=== PATIENT | female | born 1930 | race Caucasian/White ===

== ENCOUNTER 2017-06-27 17:54 | Inpatient (IN) | payer BC, MEDICARE ==
[~2017-06-27] VITALS: Ht 144.8 cm; Wt 58.3 kg
[2017-06-27 18:25] LABS: BASOPHILS # (AUTO) 0.2 K/uL (0.0-8.0); BASOPHILS % (AUTO) 1.7 % (0.0-2.0); EOSINOPHILS % (AUTO) 0.5 % (0.0-7.0); HEMATOCRIT 48.4 % (37-47); HEMOGLOBIN 16.3 G/DL (12.0-16.0); LYMPHOCYTES # (AUTO) 1.4 K/UL (0.8-4.8); LYMPHOCYTES % (AUTO) 14.2 % (20.5-51.5); MEAN CORPUSCULAR HEMOGLOBIN 29.2 UUG (27.0-31.0); MEAN CORPUSCULAR HGB CONC 34 g/dL (32.0-37.0); MONOCYTES # (AUTO) 0.6 K/UL (0.1-1.30); MONOCYTES % (AUTO) 6.2 % (0.0-11.0); NEUTROPHILS # (AUTO) 7.4 K/UL (1.8-8.9); NEUTROPHILS % (AUTO) 77.4 % (38.5-71.5); PLATELET COUNT (AUTO) 299 K/UL (150-450); RED BLOOD CELL COUNT(AUTO) 5.57 MIL/UL (4.2-5.4); WHITE BLOOD COUNT (AUTO) 9.6 K/UL (4.0-11.2)
[2017-06-27 18:29] LABS: CARBON DIOXIDE 31 mmol/L (21-32); CHLORIDE 99 mmol/L (98-107); CREATININE 0.7 mg/dL (0.6-1.3); GLUCOSE 115 mg/dL (74-106); POTASSIUM 3.9 mmol/L (3.5-5.1); UREA NITROGEN, BLOOD 14 mg/dL (7-18)
[2017-06-27 18:36] LABS: ALANINE AMINOTRANSFERASE 20 U/L (14-59); ALKALINE PHOSPHATASE 113 U/L (50-136); ASPARTATE AMINOTRANSFERASE 20 U/L (15-37); BILIRUBIN,DIRECT 0.1 mg/dL (0.0-0.2); BILIRUBIN,TOTAL 0.3 mg/dL (0.2-1.0); TOTAL PROTEIN, SERUM 7.8 g/dL (6.4-8.2)
[2017-06-27] MEDS ORDERED: LABETALOL HCL 100 MG/20 ML VIAL IV ONE (19:45)
[2017-06-27] MEDS ORDERED: AZITHROMYCIN IV 500 MG in IV DEXTROSE 5% 250 ML IV ONE (19:45)
[2017-06-27] MEDS ORDERED: PIPERACILLIN SODIUM/TAZOBACTAM 3.375 G in IV DEXTROSE 5% 50 ML IV ONE (19:45)
[2017-06-27] MEDS ORDERED: AZITHROMYCIN 500 MG VIAL IV ONE (20:01)
[2017-06-27] MEDS ORDERED: PIPERACILLIN/TAZOBACTAM/D5W 50 ML IV ONE (20:01)
--- NOTE | 2017-06-27 20:20 | NUR ---
PATIENT BP AT 206/78. PAIENT DENIES PAIN,SOB. DR HARDING MADE AWARE
[2017-06-27] MEDS ORDERED: ONDANSETRON IV *ER 4 MG/2 ML VIAL IV ONE (20:30)
[2017-06-27] MEDS ORDERED: LABETALOL HCL 100 MG/20 ML VIAL ONE (20:37)
[2017-06-27] MEDS ORDERED: ONDANSETRON 4 MG/2 ML VIAL ONE (20:37)
[2017-06-27 21:04] LABS: *BILIRUBIN,URIN NEGATIVE (NEGATIVE); *BLOOD, URINE Trace-lysed (NEGATIVE); *CLARITY,URINE CLEAR (CLEAR); *COLOR,URINE YELLOW (YELLOW); *KETONES,URINE NEGATIVE (NEGATIVE); *PROTEIN,URINE 1+ (NEGATIVE); *UROBILINOGEN,URINE 0.2 E.U./dl (NORMAL); LEUKOCYTE ESTERASE ,URINE NEGATIVE (NEGATIVE); NITRITE, URINE NEGATIVE (NEGATIVE); PH,URINE 7.5 (5.0-8.0); UGLUCOSE NEGATIVE (NEGATIVE)
[2017-06-27 21:10] LABS: BACTERIA,URINE NONE SEEN /HPF (NONE SEEN); SQUAMOUS EPITHELIAL CELL,UR FEW /HPF (NONE SEEN); WBC,URINE 0-3 /HPF (0-3)
--- NOTE | 2017-06-27 21:20 | NUR ---
transfered to 2nd floor via [facility]
--- NOTE | 2017-06-27 21:40 | NUR ---
RECEIVED PATIENT VIA GURNEY FROM ER WITH DAUGHTER PRESENT AT BEDSIDE. PATIENT IS ALERT TO SELF, CONFUSED AND VERY FORGETFUL, BUT PLEASANT AND COOPERATIVE WHEN APPROACHED. PER PATIENTS DAUGHTER, PATIENT HAS LOST COMPLETE MEMORY FOR THE LAST 3 WEEKS. PATIENT FOLLOWS SIMPLE DIRECTIONS BUT EASILY FORGETFUL AND NEEDS FREQUENT REDIRECTION. DENIES PAIN WHEN ASKED, NO S/S OF PAIN OR DISCOMFORT. NO RESP. DISTRESS NOTED. PATIENT IS ON O2 2L NC SATING 98%. VS WNL. PLACED ON TELE ORDERED, SR. REPSOTIOEMD TO SIDE FOR COMFORT AND PRESSURE RELIEF. SKIN IS INTACT. BED ALARM ON. CALL LIGHT IN REACH. ALL NEEDS ATTENDED. WILL CONTINUE TO MONITOR AND ASSESS.
[2017-06-27 21:45] VITALS: BP 148/89
[2017-06-27] MEDS ORDERED: ENALAPRILAT DIHYDRATE INJ 2.5 MG in IV NORMAL SALINE 50 ML IV PRN (22:00)
[2017-06-27] MEDS ORDERED: ONDANSETRON 4 MG/2 ML VIAL IV PRN (22:00)
[2017-06-27] MEDS ORDERED: ALBUTEROL SULFATE 2.5 MG/3 ML NEBU NEB PRN (22:00)
[2017-06-27] MEDS ORDERED: AZITHROMYCIN IV 500 MG in IV DEXTROSE 5% 250 ML IV SCH (22:00)
[2017-06-27] MEDS ORDERED: ACETAMINOPHEN 325 MG TABLET PO PRN (22:00)
[2017-06-27] MEDS ORDERED: MAGNESIUM HYDROXIDE 30 ML LIQUID UDC PO PRN (22:00)
[2017-06-27] MEDS ORDERED: HYDROCODONE/APAP 5-325MG TABLET PO PRN (22:00)
[2017-06-27] MEDS ORDERED: DONE10TA44 PO (22:01)
[2017-06-27] MEDS ORDERED: DENO60DI SQ (22:01)
[2017-06-27] MEDS ORDERED: ACET325T53 PO (22:01)
[2017-06-27] MEDS ORDERED: ONDA4TAB10 PO (22:01)
[2017-06-27] MEDS ORDERED: QUET25TA PO (22:01)
[2017-06-27] MEDS ORDERED: MIRA25TA PO (22:01)
[2017-06-27] MEDS: CEFTRIAXONE 1 G in IV DEXTROSE 5% 50 ML IV SCH (23:31)
[2017-06-27] MEDS ORDERED: CEFTRIAXONE 1 G VIAL ONE (23:35)
[2017-06-28] VITALS: BP 142/75
[2017-06-28 05:06] VITALS: BP 182/91
--- NOTE | 2017-06-28 05:15 | NUR ---
PATIENTS BLOOD PRESSURE 182/91. ALL OTHER VSS. PATIENT GIVEN VASOTEC 2.5MG IV PER OPERATIONS SUPERVISOR CHEMICAL CLEANING. ON TELE SR. WILL CONTINUE TO MONITOR AND ASSESS.
[2017-06-28] MEDS ORDERED: ENALAPRILAT DIHYDRATE 1.25 MG/1 ML VIAL IV ONE (05:18)
--- NOTE | 2017-06-28 06:17 | NUR ---
PATIENT AWAKE IN BED. ON TELE SR. NO S/S OF PAIN OR DISCOMFORT. NO RESP. DISTRESS NOTED. BED ALARM ON. CALL LIGHT IN REACH. ALL NEEDS ATTENDED. WILL CONTINUE TO MONITOR.
[2017-06-28 06:42] VITALS: BP 133/52
--- NOTE | 2017-06-28 06:43 | NUR ---
PATIENT AWAKE IN BED. RECHECKED PATIENTS BLOOD PRESSURE 133/52. ALL OTHER VSS. BED ALARM ON. ALL NEEDS ATTENDED. WILL CONTINUE TO MONITOR.
[2017-06-28 06:48] LABS: BASOPHILS % (AUTO) 0.1 % (0.0-2.0); EOSINOPHILS # (AUTO) 0.1 K/uL (0.0-0.7); EOSINOPHILS % (AUTO) 0.8 % (0.0-7.0); HEMATOCRIT 44.2 % (37-47); LYMPHOCYTES # (AUTO) 1.3 K/UL (0.8-4.8); LYMPHOCYTES % (AUTO) 15.2 % (20.5-51.5); MEAN CORPUSCULAR HEMOGLOBIN 29.8 UUG (27.0-31.0); MEAN CORPUSCULAR HGB CONC 34 g/dL (32.0-37.0); MEAN CORPUSCULAR VOLUME 87.8 FL (81.0-99.0); MONOCYTES # (AUTO) 0.8 K/UL (0.1-1.30); NEUTROPHILS # (AUTO) 6.7 K/UL (1.8-8.9); NEUTROPHILS % (AUTO) 74.9 % (38.5-71.5); PLATELET COUNT (AUTO) 286 K/UL (150-450); RED BLOOD CELL COUNT(AUTO) 5.03 MIL/UL (4.2-5.4); WHITE BLOOD COUNT (AUTO) 8.9 K/UL (4.0-11.2)
[2017-06-28 07:14] LABS: ALANINE AMINOTRANSFERASE 24 U/L (14-59); ALKALINE PHOSPHATASE 95 U/L (50-136); ASPARTATE AMINOTRANSFERASE 17 U/L (15-37); BILIRUBIN,TOTAL 0.5 mg/dL (0.2-1.0); CARBON DIOXIDE 31 mmol/L (21-32); CHLORIDE 99 mmol/L (98-107); CHOLESTEROL 243 mg/dL (<200); CREATININE 0.7 mg/dL (0.6-1.3); GLUCOSE 105 mg/dL (74-106); HDL CHOLESTEROL 62 mg/dL (40-60); MAGNESIUM 1.8 mg/dL (1.8-2.4); PHOSPHOROUS 3.9 mg/dL (2.5-4.9); POTASSIUM 3.2 mmol/L (3.5-5.1); TOTAL PROTEIN, SERUM 6.8 g/dL (6.4-8.2); TRIGLYCERIDES 68 MG/DL (30-150); UREA NITROGEN, BLOOD 14 mg/dL (7-18)
[2017-06-28 08:11] LABS: THYROID STIMULATING HORMONE 2.289 mIU/mL (0.358-3.740)
[2017-06-28] MEDS: PANTOPRAZOLE SODIUM 40 MG TABLET.DR PO SCH (08:35)
[2017-06-28] MEDS ORDERED: FUROSEMIDE 20 MG/2 ML VIAL IV SCH (09:00)
[2017-06-28] MEDS ORDERED: DONEPEZIL 10 MG TABLET PO SCH (09:00)
[2017-06-28] MEDS ORDERED: METOPROLOL TARTRATE 25 MG TABLET PO SCH (09:00)
[2017-06-28 12:00] VITALS: BP 104/34
--- NOTE | 2017-06-28 12:05 | NUR ---
Received patient asleep in bed, non-labored breathing. Not in distress. Will continue to monitor.
--- NOTE | 2017-06-28 13:54 | NUR ---
Encouraged patient to eat or drink but refuses. Alert x1. No complaints of discomfort. Side rails up x3, bed in low position. Bed alarm on. Call light within reach
[2017-06-28] MEDS ORDERED: POTASSIUM CHLORIDE 20 MEQ TAB.PRT.SR PO ONE (15:00)
[2017-06-28] MEDS: AMLODIPINE 5 MG TABLET PO SCH (15:07)
[2017-06-28 15:47] VITALS: BP 136/43
[2017-06-28] MEDS: DONEPEZIL 5 MG TABLET PO SCH (16:56)
--- NOTE | 2017-06-28 17:51 | NUR ---
With daughter at bedside. Awake, oriented x1, still with periods of confusion. NO SOB or chest pains noted. Not in any form of distress.
[2017-06-28 20:00] VITALS: BP 159/75
[2017-06-28] MEDS ORDERED: DOCUSATE SODIUM 100 MG CAPSULE PO SCH (21:00)
[2017-06-28] MEDS ORDERED: AZITHROMYCIN IV 500 MG in IV DEXTROSE 5% 250 ML IV SCH (21:00)
[2017-06-28] MEDS ORDERED: QUETIAPINE FUMARATE 25 MG TABLET PO SCH (21:00)
[2017-06-28] MEDS: CEFTRIAXONE 1 G in IV DEXTROSE 5% 50 ML IV SCH (21:43)
[2017-06-29 04:30] VITALS: BP 137/75
[2017-06-29] MEDS: PANTOPRAZOLE SODIUM 40 MG TABLET.DR PO SCH (06:05)
[2017-06-29 06:41] LABS: CARBON DIOXIDE 31 mmol/L (21-32); CHLORIDE 97 mmol/L (98-107); GLUCOSE 99 mg/dL (74-106); POTASSIUM 4.1 mmol/L (3.5-5.1); UREA NITROGEN, BLOOD 14 mg/dL (7-18)
--- NOTE | 2017-06-29 06:56 | NUR ---
PATIENT SLEPT INTERMITTENTLY, IN NO ACUTE DISTRESS. PATIENT KEPT CLEAN/DRY, REPOSITIONED FOR COMFORT. SAFETY MEASURES IN PLACE. NO SIGNIFICANT CHANGE OF CONDITION THROUGHOUT THE SHIFT. WILL ENDORSE TO ONCOMING SHIFT RN.
--- NOTE | 2017-06-29 07:10 | NUR ---
Received report from night coordinator nurse, patient in bed asleep, no evidence of distress noted. Bed in low position, side rails up x2, bed alarm on.
[2017-06-29] MEDS: DONEPEZIL 5 MG TABLET PO SCH (08:43)
[2017-06-29] MEDS: AMLODIPINE 5 MG TABLET PO SCH (08:44)
[2017-06-29 11:11] VITALS: BP 115/46
[2017-06-29 11:50] VITALS: BP 188/76
--- NOTE | 2017-06-29 11:50 | NUR ---
Patient ambulated with physical therapy, and complained about left leg pain which got better as she ambulated. Upon sitting BP was taken and noted to be elevated. Pain medication will be given to patient.
[2017-06-29 12:48] VITALS: BP 143/62
--- NOTE | 2017-06-29 13:10 | NUR ---
Patient was taken to Son's vehicle as he will be taking her home. Son stated that the patient had a dwayne watch and clothing on when she arrived. Review of patient belonging list performed and no indication of anything but dentures were documented.
== END 2017-06-29 13:30 | DRG 193 ==
LOC: ER 17:55 → TELE 21:04 → MED 06-28 16:00
PROVIDERS: ADMIT Internal Medicine; ATTEND Family Medicine
DX: J15.9 Unspecified bacterial pneumonia (principal); I50.31 Acute diastolic (congestive) heart failure; G30.9 Alzheimer's disease, unspecified; E86.0 Dehydration; F02.80 Dementia in other diseases classified elsewhere, unspecified severity, without behavioral disturbance, psychotic disturbance, mood disturbance, and anxiety; N32.81 Overactive bladder; I16.0 Hypertensive urgency; I11.0 Hypertensive heart disease with heart failure; M81.0 Age-related osteoporosis without current pathological fracture; I70.0 Atherosclerosis of aorta
CPT/HCPCS: 36415; 70030-TC; 70450; 71010; 83605; 83735; 84100; 84443; 85025; 85730; 87040; 87086; 93005; 93307; 97116; 97530; A4663; C1758; J0456; J0696; J1940; J2405; J2543; J3490; J7050; J7060

== ENCOUNTER 2017-11-03 08:29 | Inpatient (IN) | payer BC ==
[~2017-11-03] VITALS: Ht 152.4 cm; Wt 54.4 kg
[~2017-11-03 08:29] MED LIST: ACET325T53 PO; DENO60DI SQ; DONE10TA44 PO; MIRA25TA PO; ONDA4TAB10 PO; QUET25TA PO
[2017-11-03] MEDS ORDERED: DICL75TA5 PO (08:52)
[2017-11-03] MEDS ORDERED: MENT71OI TP (08:52)
--- NOTE | 2017-11-03 09:14 | NUR ---
iv placed, labs drawn-sent, ekg done, pt at ct scan/xray. monitor showed nsr, po2=93% on roomair. no distress noted.
[2017-11-03 09:15] LABS: BASOPHILS % (AUTO) 0.7 % (0.0-2.0); EOSINOPHILS # (AUTO) 0.1 K/uL (0.0-0.7); HEMATOCRIT 45.2 % (31.2-41.9); HEMOGLOBIN 15.3 g/dL (10.9-14.3); LYMPHOCYTES # (AUTO) 1.2 K/uL (20.0-40.0); LYMPHOCYTES % (AUTO) 17.6 % (20.5-51.5); MEAN CORPUSCULAR HGB CONC 34 g/dL (32.3-35.6); MEAN CORPUSCULAR VOLUME 88.9 fL (75.5-95.3); MONOCYTES # (AUTO) 0.6 K/uL (2.0-10.0); MONOCYTES % (AUTO) 8.6 % (0.0-11.0); NEUTROPHILS # (AUTO) 4.9 K/uL (1.8-8.9); NEUTROPHILS % (AUTO) 71.1 % (38.5-71.5); PLATELET COUNT (AUTO) 281 K/uL (179-408); RED BLOOD CELL COUNT(AUTO) 5.08 MIL/uL (3.63-4.92); WHITE BLOOD COUNT (AUTO) 6.8 K/uL (3.8-11.8)
[2017-11-03 09:17] LABS: CARBON DIOXIDE 33 mmol/L (21-32); CHLORIDE 102 mmol/L (98-107); CREATININE 0.8 mg/dL (0.6-1.3); GLUCOSE 97 mg/dL (74-106); UREA NITROGEN, BLOOD 20 mg/dL (7-18)
[2017-11-03 09:23] LABS: ALANINE AMINOTRANSFERASE 20 U/L (14-59); ALKALINE PHOSPHATASE 83 U/L (50-136); ASPARTATE AMINOTRANSFERASE 16 U/L (15-37); BILIRUBIN,TOTAL 0.5 mg/dL (0.2-1.0); CREATINE KINASE, TOTAL 35 U/L (26-192); TOTAL PROTEIN, SERUM 7.1 g/dL (6.4-8.2)
--- NOTE | 2017-11-03 09:33 | NUR ---
prt returned from radiology, no distress noted.
[2017-11-03] MEDS ORDERED: CLONIDINE HCL 0.2 MG TABLET PO ONE (10:31)
[2017-11-03] MEDS ORDERED: CLONIDINE HCL 0.1 MG TABLET PO ONE (10:34)
[2017-11-03] MEDS ORDERED: CLONIDINE HCL 0.1 MG TABLET ONE (10:35)
--- NOTE | 2017-11-03 10:48 | NUR ---
sbar report to [facility], belongings list, admit order completed.
--- NOTE | 2017-11-03 11:05 | NUR ---
pt transported via [facility] with monitor to rm 205.
--- NOTE | 2017-11-03 11:08 | NUR ---
PT ARRIVED TO UNIT ON GURNEY, PT IS AOX2 AND FORGETFUL. PT STABLE, SKIN INTACT. MINOR BRUISE FROM FALL AT [facility] ON RIGHT SIDE OF FOREHEAD. NO FRACTURES NOTED. PT SHOWS NO SIGNS OF RESPIRATORY DISTRESS. IV INTACT, UA PENDING WILL ENDORSE TO BOOK RETAILER. PT ON TELE.
[2017-11-03 11:18] VITALS: BP 129/63
[2017-11-03] MEDS ORDERED: MAGNESIUM HYDROXIDE 30 ML LIQUID UDC PO PRN (15:15)
[2017-11-03] MEDS ORDERED: TRAMADOL HCL 50 MG TABLET PO PRN (15:15)
[2017-11-03] MEDS ORDERED: ONDANSETRON 4 MG/2 ML VIAL IV PRN (15:15)
[2017-11-03] MEDS ORDERED: Z GUARD REMEDY PASTE 57 GM TUBE TP PRN (15:15)
[2017-11-03] MEDS ORDERED: ACETAMINOPHEN 325 MG TABLET PO PRN ×2 (15:15)
[2017-11-03 15:32] VITALS: BP 115/66
--- NOTE | 2017-11-03 19:25 | NUR ---
PT RECEIVED IN BED, AWAKE. A/OX1, BUT ABLE TO MAKE NEEDS KNOWN. V/S STABLE. IN NO ACUTE DISTRESS. NO C/O PAIN AT THIS TIME. 94 SINUS RHYTHM ON THE TELE MONITOR. IV ON LAC INTACT AND PATENT, HEP-LOCKED. ON RA, TOLERATING WELL. AFEBRILE. HOB ELEVATED. SAFETY MEASURES IMPLEMENTED. BED ALARM SET. CALL LIGHT WITHIN REACH.
[2017-11-03 20:00] VITALS: BP 129/72
[2017-11-03] MEDS ORDERED: QUETIAPINE FUMARATE 25 MG TABLET PO SCH (21:00)
[2017-11-03] MEDS ORDERED: DOCUSATE SODIUM 250 MG CAPSULE PO SCH (21:00)
[2017-11-03] MEDS ORDERED: DOCUSATE SODIUM 100 MG CAPSULE PO SCH (21:00)
[2017-11-03] MEDS: TOLTERODINE 2 MG TABLET PO SCH (21:58)
[2017-11-03] MEDS ORDERED: LORAZEPAM 2 MG/1 ML VIAL IV PRN (23:45)
--- NOTE | 2017-11-04 00:05 | NUR ---
PT NON-COMPLIANT WITH CARE. CONFUSED, SCREAMING, REMOVING DIAPER, SCRATCHING MANAGEMENT SPECIALIST. ADMINISTERED ATIVAN ORDERED. IN STABLE CONDITION. WILL CONT TO MONITOR.
[2017-11-04 04:26] VITALS: BP 108/65
--- NOTE | 2017-11-04 06:05 | NUR ---
END OF SHIFT NOTES. PT SLEPT WELL THROUGHOUT SHIFT. IN STABLE CONDITION. TOLERATED RA, WELL. IV CONT TO BE INTACT AND PATENT, HEP-LOCKED. AFEBRILE THROUGHOUT SHIFT. PT AGITATION CEASED. COMPLIANT WITH CARE. HOB REMAINS ELEVATED. ALL NEEDS ATTENDED. SAFETY MAINTAINED. CALL LIGHT WITHIN REACH.
[2017-11-04 07:00] LABS: BASOPHILS # (AUTO) 0.1 K/uL (0.0-8.0); BASOPHILS % (AUTO) 0.8 % (0.0-2.0); EOSINOPHILS # (AUTO) 0.1 K/uL (0.0-0.7); EOSINOPHILS % (AUTO) 1.4 % (0.0-7.0); HEMATOCRIT 45.8 % (31.2-41.9); HEMOGLOBIN 15.3 g/dL (10.9-14.3); LYMPHOCYTES # (AUTO) 1.3 K/uL (20.0-40.0); LYMPHOCYTES % (AUTO) 15.8 % (20.5-51.5); MEAN CORPUSCULAR HEMOGLOBIN 29.7 uug (24.7-32.8); MEAN CORPUSCULAR HGB CONC 34 g/dL (32.3-35.6); MEAN CORPUSCULAR VOLUME 88.8 fL (75.5-95.3); MONOCYTES # (AUTO) 0.7 K/uL (2.0-10.0); MONOCYTES % (AUTO) 8.5 % (0.0-11.0); NEUTROPHILS # (AUTO) 5.9 K/uL (1.8-8.9); NEUTROPHILS % (AUTO) 73.5 % (38.5-71.5); PLATELET COUNT (AUTO) 291 K/uL (179-408); RED BLOOD CELL COUNT(AUTO) 5.15 MIL/uL (3.63-4.92)
[2017-11-04] MEDS ORDERED: PANTOPRAZOLE SODIUM 40 MG TABLET.DR PO SCH (07:00)
--- NOTE | 2017-11-04 07:00 | NUR ---
Received client in bed sleeping in a flat supine position with no apparent s/s of pain, distress, discomfort, SOB or labored breathing. Client is on RA. Heplock. Bed at lowest position for safety and call light within reach for assistance
[2017-11-04 07:30] LABS: ALANINE AMINOTRANSFERASE 16 U/L (14-59); ALKALINE PHOSPHATASE 78 U/L (50-136); ASPARTATE AMINOTRANSFERASE 18 U/L (15-37); BILIRUBIN,TOTAL 0.5 mg/dL (0.2-1.0); CARBON DIOXIDE 30 mmol/L (21-32); CHLORIDE 103 mmol/L (98-107); CHOLESTEROL 260 mg/dL (<200); CREATININE 0.6 mg/dL (0.6-1.3); GLUCOSE 89 mg/dL (74-106); HDL CHOLESTEROL 62 mg/dL (40-60); MAGNESIUM 1.9 mg/dL (1.8-2.4); POTASSIUM 3.4 mmol/L (3.5-5.1); TOTAL PROTEIN, SERUM 6.6 g/dL (6.4-8.2); TRIGLYCERIDES 64 MG/DL (30-150); UREA NITROGEN, BLOOD 16 mg/dL (7-18)
[2017-11-04 07:32] LABS: THYROID STIMULATING HORMONE 2.635 mIU/mL (0.358-3.740)
[2017-11-04] MEDS: TOLTERODINE 2 MG TABLET PO SCH (08:32)
[2017-11-04 11:32] VITALS: BP 163/85
[2017-11-04] MEDS ORDERED: POTASSIUM CHLORIDE 20 MEQ POWDER PACKET PO ONE (11:45)
--- NOTE | 2017-11-04 14:15 | NUR ---
MRSA sample from nares obtained and sent down to lab
--- NOTE | 2017-11-04 15:30 | NUR ---
Patient was discharged with orders from MD to [place]. Client's IV and ID band removed. Daughter by bed side. Patient is under no distress, discomfort, SOB, labored breathing or pain. All discharge papers signed by daughter. Patient was guided in a wheelchair by DIRECTOR OF PROGRAM MANAGEMENT and daughter to lobby.
--- NOTE | 2017-11-04 17:39 | NUR ---
Unable to obtain urine sample
== END 2017-11-04 15:30 | disposition home health service (06) | DRG 74 ==
LOC: ER 08:29 → TELE 10:58 → MED 23:30
PROVIDERS: ADMIT Internal Medicine; ATTEND Internal Medicine
DX: G90.8 Other disorders of autonomic nervous system (principal); D68.59 Other primary thrombophilia; G30.9 Alzheimer's disease, unspecified; F02.80 Dementia in other diseases classified elsewhere, unspecified severity, without behavioral disturbance, psychotic disturbance, mood disturbance, and anxiety; N39.0 Urinary tract infection, site not specified; Z66 Do not resuscitate; W08.XXXA Fall from other furniture, initial encounter; E78.5 Hyperlipidemia, unspecified; E87.6 Hypokalemia; S00.81XA Abrasion of other part of head, initial encounter; Y93.89 Activity, other specified; Y92.092 Bedroom in other non-institutional residence as the place of occurrence of the external cause; Z88.1 Allergy status to other antibiotic agents; Z88.8 Allergy status to other drugs, medicaments and biological substances; M16.0 Bilateral primary osteoarthritis of hip; Z85.51 Personal history of malignant neoplasm of bladder; Z87.440 Personal history of urinary (tract) infections; K58.9 Irritable bowel syndrome, unspecified; R32 Unspecified urinary incontinence; Z87.891 Personal history of nicotine dependence; Z79.899 Other long term (current) drug therapy; M48.00 Spinal stenosis, site unspecified; G89.29 Other chronic pain; Z74.09 Other reduced mobility; I09.9 Rheumatic heart disease, unspecified; I44.4 Left anterior fascicular block
CPT/HCPCS: 36415; 70030-TC; 70450; 71045; 72170; 73502; 73560; 82306; 83735; 84100; 84443; 85025; 85610; 93005; A4663; J2060

== ENCOUNTER 2017-11-05 10:04 | Emergency (ER) | payer BC ==
[~2017-11-05] VITALS: Ht 152.4 cm; Wt 54.4 kg
[~2017-11-05 10:04] MED LIST changes: -DENO60DI SQ; +DICL75TA5 PO; -DONE10TA44 PO; +MENT71OI TP
[2017-11-05] MEDS ORDERED: IV NORMAL SALINE 500 ML BAG IV ONE (10:30)
--- NOTE | 2017-11-05 10:47 | NUR ---
labsdrawn/saline lock placed/ekg done, pt to ct scan via [facility].
[2017-11-05 10:58] LABS: BASOPHILS # (AUTO) 0.1 K/uL (0.0-8.0); BASOPHILS % (AUTO) 0.7 % (0.0-2.0); EOSINOPHILS % (AUTO) 0.3 % (0.0-7.0); HEMATOCRIT 46.6 % (31.2-41.9); HEMOGLOBIN 15.6 g/dL (10.9-14.3); LYMPHOCYTES % (AUTO) 7.2 % (20.5-51.5); MEAN CORPUSCULAR HEMOGLOBIN 29.6 uug (24.7-32.8); MEAN CORPUSCULAR HGB CONC 34 g/dL (32.3-35.6); MEAN CORPUSCULAR VOLUME 88.3 fL (75.5-95.3); NEUTROPHILS # (AUTO) 12.2 K/uL (1.8-8.9); NEUTROPHILS % (AUTO) 84.8 % (38.5-71.5); PLATELET COUNT (AUTO) 281 K/uL (179-408); RED BLOOD CELL COUNT(AUTO) 5.28 MIL/uL (3.63-4.92); WHITE BLOOD COUNT (AUTO) 14.3 K/uL (3.8-11.8)
[2017-11-05 11:03] LABS: CARBON DIOXIDE 27 mmol/L (21-32); CHLORIDE 101 mmol/L (98-107); CREATININE 0.8 mg/dL (0.6-1.3); GLUCOSE 115 mg/dL (74-106); POTASSIUM 3.7 mmol/L (3.5-5.1); UREA NITROGEN, BLOOD 17 mg/dL (7-18)
[2017-11-05 11:08] LABS: ACETAMINOPHEN 7.1 ug/mL (10-30); ALANINE AMINOTRANSFERASE 19 U/L (14-59); ALKALINE PHOSPHATASE 85 U/L (50-136); ASPARTATE AMINOTRANSFERASE 18 U/L (15-37); BILIRUBIN,DIRECT 0.1 mg/dL (0.0-0.2); BILIRUBIN,TOTAL 0.6 mg/dL (0.2-1.0); TOTAL PROTEIN, SERUM 7.1 g/dL (6.4-8.2)
[2017-11-05 11:22] LABS: THYROID STIMULATING HORMONE 2.031 mIU/mL (0.358-3.740)
[2017-11-05 11:37] LABS: *BILIRUBIN,URIN NEGATIVE (NEGATIVE); *BLOOD, URINE Trace-lysed (NEGATIVE); *CLARITY,URINE SLIGHTLY CLOUDY (CLEAR); *COLOR,URINE YELLOW (YELLOW); *KETONES,URINE 1+ (NEGATIVE); *PROTEIN,URINE TRACE (NEGATIVE); *UROBILINOGEN,URINE 0.2 E.U./dl (NORMAL); LEUKOCYTE ESTERASE ,URINE 1+ (NEGATIVE); NITRITE, URINE NEGATIVE (NEGATIVE); PH,URINE 6.5 (5.0-8.0); UGLUCOSE NEGATIVE (NEGATIVE)
[2017-11-05 11:48] LABS: BACTERIA,URINE FEW /HPF (NONE SEEN); SQUAMOUS EPITHELIAL CELL,UR MODERATE /HPF (NONE SEEN)
[2017-11-05] MEDS ORDERED: SULFAMETHE/TRIMETH 20 ML LIQUID UDC ONE (12:09)
[2017-11-05] MEDS ORDERED: SULFAMETHE/TRIMETH 20 ML LIQUID UDC PO ONE (12:15)
--- NOTE | 2017-11-05 12:25 | NUR ---
mse completed, 500ml 0.9ns infused,diaperchanged,saline lock d/c'd intaxct,medication admin. pt's daughter present, [facility]. pt was then transported to daughter vehicle w/o complications. daughter wanted to rtransport pt to [place] instead by ambulance. pt was changed and pt took al belongings.
[2017-11-05 12:39] VITALS: BP 158/66
== END 2017-11-05 12:20 | disposition home or self-care (01) ==
LOC: ER 10:05
DX: N39.0 Urinary tract infection, site not specified (principal); K21.9 Gastro-esophageal reflux disease without esophagitis; Z88.1 Allergy status to other antibiotic agents; Z88.8 Allergy status to other drugs, medicaments and biological substances; Z79.899 Other long term (current) drug therapy
CPT/HCPCS: 36415; 70030-TC; 70450; 71045; 84443; 85025; 85730; 87077; 87086; 93005; A4663; C1758; G0480-TC; J7040; J8499